=== PATIENT | female | born 1935 | race African-American/Black ===

== ENCOUNTER 2017-12-08 09:32 | Outpatient (CLI) | payer MEDICARE ==
--- NOTE | 2017-12-08 12:08 | BD ---
DEXA BONE DENSITY STUDY: HISTORY: Postmenopausal screening in an 82-year-old female. FINDINGS: Lumbar Spine: BMD (g/cm2) L1 0.842 T-Score: -1.3 L2 0.936 T-Score: -0.8 L3 0.998 T-Score: -0.8 L4 0.982 T-Score: -0.7 L1-L4 0.946 T-Score: -0.9 Femoral Neck: 0.658 T-Score: -1.7 Total Femur: 0.795 T-Score: -1.2 Evidence for osteopenia with increased risk for fracture. FRAX SCORE: Major osteoporotic fracture 6.5% and hip fracture 1.7%. POS: C
== END 2017-12-08 09:33 | disposition home or self-care (01) ==
LOC: BICMAMMO 09:32
PROVIDERS: ATTEND Family Medicine
DX: Z13.820 Encounter for screening for osteoporosis (principal); Z78.0 Asymptomatic menopausal state; M85.859 Other specified disorders of bone density and structure, unspecified thigh
CPT/HCPCS: 77080

== ENCOUNTER 2021-08-03 23:19 | Inpatient (IN) | payer OTHER ==
[2021-08-04 00:54] LABS: Bacteria/HPF 4+ HPF (None Seen); Bilirubin Negative (Negative); Blood, Urine 3+ (Negative); Clarity Turbid (Clear); Glucose, Urine (Dipstick) Normal (Negative); Ketone, Urine Negative (Negative); Leukocyte 75 Leu/uL (Negative); Nitrite Negative (Negative); Protein, Urine (Dipstick) 100 mg/dL (Neg-Trace); Urobilinogen Normal mg/dL (Less than 2); pH, Urine 5.5 (5.0-9.0)
[2021-08-04 00:55] LABS: Urine Culture Reflex No No
[2021-08-04 01:12] LABS: #Basophils 0.1 thou/uL (0.0-0.2); #Eosinphils 0.1 thou/uL (0.0-0.7); #Lymphocytes 2.1 thou/uL (1.20-3.40); #Monocytes 0.9 thou/uL (0.11-0.59); %Eosinophils 0.9 % (0.0-10.0); %Lymphocytes 22.5 % (21.0-51.0); %Monocytes 9.3 % (0.0-10.0); %Neutrophils 66.3 % (42.0-75.0); Mean Corpuscular HGB CONC 33.7 g/dL (32.0-36.0); Mean Corpuscular Hemoglobin 30.4 pg (27.0-31.0); Mean Corpuscular Volume 90.2 fL (78.0-98.0); Mean Platelet Volume 7.2 fL (7.4-10.4); Platelet Count 238 thou/uL (130-400); Red Blood Cell (RBC) Count 3.93 mill/uL (4.20-5.40); White Blood Cell (WBC) Count 9.1 thou/uL (4.8-10.8)
[2021-08-04] MEDS ORDERED: Cefepime 2 GM VIAL ONE (01:40)
[2021-08-04] MEDS ORDERED: Vancomycin 1 GM/200 ML BAG ONE (01:41)
[2021-08-04 01:57] LABS: ALT (SGPT) 135 U/L (8-55); AST (SGOT) 186 U/L (5-34); Albumin 3.1 g/dL (3.4-4.8); Alkaline Phosphatase 89 U/L (40-110); Anion Gap 22 mmol/L (10-20); BUN (Urea Nitrogen) 25 mg/dL (9.8-20.1); Bilirubin, Total 0.4 mg/dL (0.2-1.2); Calc. Creatinine Clearance 0 mL/min (70-130); Carbon Dioxide 12 mmol/L (23-31); Chloride 107 mmol/L (98-107); Globulin 3.5 g/dL (2.4-3.5); Glucose 147 mg/dL (83-110); Magnesium 2.5 mg/dL (1.6-2.6); Potassium 4.8 mmol/L (3.5-5.1); Protein, Total 6.6 g/dL (5.8-8.1); Sodium 136 mmol/L (136-145)
[2021-08-04 02:26] LABS: Troponin I 1.986 ng/mL (< 0.028)
[2021-08-04] MEDS ORDERED: Aspirin 325 MG TAB ONE (03:17)
[2021-08-04 04:43] LABS: CKMB 15.7 ng/mL (0-6.6)
[2021-08-04 04:53] VITALS: BMI 24.5
[2021-08-04 04:58] LABS: Troponin I 2.064 ng/mL (< 0.028)
[2021-08-04] MEDS ORDERED: Lactated Ringer's 1,000 ML IV SCH (05:00)
[2021-08-04] MEDS ORDERED: Ondansetron PF 4 MG/2 ML Vial IVP PRN (05:00)
[2021-08-04] MEDS ORDERED: Ondansetron ODT 4 MG TAB SL PRN (05:00)
[2021-08-04] MEDS ORDERED: Acetaminophen 325 MG TAB PO PRN (05:00)
[2021-08-04] MEDS ORDERED: Communication Order-Pharmacy FS PRN (05:35)
[2021-08-04] MEDS ORDERED: Acetaminophen 500 MG TAB PO PRN (05:35)
[2021-08-04] MEDS ORDERED: Nitroglycerin 0.4 MG TAB (25 Tab Bottle) SL PRN (05:35)
[2021-08-04] MEDS ORDERED: Morphine 2 MG/ML VIAL SLOW IVP PRN (05:35)
[2021-08-04] MEDS ORDERED: Sodium Chloride 0.9% 1,000 ML IV SCH ×2 (05:35→06:32)
[2021-08-04] MEDS: metroNIDAZOLE 500 MG in Premix Bag 1 BAG IVPB SCH ×3 (05:54→21:09)
[2021-08-04 06:30] LABS: #Lymphocytes 0.8 thou/uL (1.20-3.40); #Monocytes 0.8 thou/uL (0.11-0.59); #Neutrophils 8.5 thou/uL (1.40-6.50); %Basophils 0.1 % (0.0-1.0); %Eosinophils 0.4 % (0.0-10.0); %Lymphocytes 8.2 % (21.0-51.0); %Monocytes 7.5 % (0.0-10.0); %Neutrophils 83.8 % (42.0-75.0); Hemoglobin 12.1 g/dL (12.0-16.0); Mean Corpuscular HGB CONC 34.8 g/dL (32.0-36.0); Mean Corpuscular Hemoglobin 29.8 pg (27.0-31.0); Mean Corpuscular Volume 85.6 fL (78.0-98.0); Mean Platelet Volume 7.1 fL (7.4-10.4); Platelet Count 203 thou/uL (130-400); RBC Distribution Width 13.6 % (11.5-14.5); Red Blood Cell (RBC) Count 4.08 mill/uL (4.20-5.40); White Blood Cell (WBC) Count 10.2 thou/uL (4.8-10.8)
[2021-08-04 06:59] LABS: ALT (SGPT) 264 U/L (8-55); AST (SGOT) 473 U/L (5-34); Albumin 3.1 g/dL (3.4-4.8); Alkaline Phosphatase 102 U/L (40-110); Anion Gap 14 mmol/L (10-20); BUN (Urea Nitrogen) 30 mg/dL (9.8-20.1); Bilirubin, Total 0.3 mg/dL (0.2-1.2); Calc. Creatinine Clearance 44 mL/min (70-130); Calcium 8.5 mg/dL (7.8-10.44); Carbon Dioxide 19 mmol/L (23-31); Chloride 107 mmol/L (98-107); Globulin 3.3 g/dL (2.4-3.5); Glucose 111 mg/dL (83-110); Potassium 4.3 mmol/L (3.5-5.1); Protein, Total 6.4 g/dL (5.8-8.1); Sodium 136 mmol/L (136-145)
[2021-08-04] MEDS ORDERED: Polyethylene Glycol 3350 17 GM Packet PO SCH ×2 (09:00)
[2021-08-04] MEDS ORDERED: Senokot 8.6 MG TAB PO SCH (09:00)
[2021-08-04] MEDS ORDERED: Vancomycin HCl 1 GM in Sodium Chloride 0.9% 250 ML 300 ML IVPB SCH (09:00)
[2021-08-04 09:16] LABS: Critical Call Chem Troponin I RESULT DECREASING; Troponin I 1.706 ng/mL (< 0.028)
[2021-08-04 09:32] LABS: Lactic Acid 1.3 mmol/L (0.5-2.2)
[2021-08-04] MEDS: Aspirin 325 mg Enteric Coated Tablet PO SCH (10:03)
[2021-08-04] MEDS: Clopidogrel Bisulfate 75 MG TAB PO SCH (10:03)
[2021-08-04] MEDS: Famotidine 20 MG TAB PO SCH (10:03)
[2021-08-04] MEDS: Donepezil HCl 10 MG TAB PO SCH (10:03)
[2021-08-04] MEDS: DorzolamidE/Timolol 2%/0.5% Ophth Soln 10 ml Bottle EA EYE SCH ×2 (10:04→21:12)
[2021-08-04] MEDS: Lidocaine 5% Patch TD SCH (10:04)
[2021-08-04] MEDS: Latanoprost 0.005% Ophth Soln 2.5 ml Bottle EA EYE SCH (13:50)
[2021-08-04] MEDS: Cefepime 2 GM in Sodium Chloride 0.9% 100 ML IVPB SCH (13:50)
[2021-08-04] MEDS ORDERED: Atorvastatin Calcium 40 MG TAB PO SCH (21:00)
[2021-08-04] MEDS: Transdermal Patch Removal TOP SCH (21:12)
[2021-08-05] MEDS: Cefepime 2 GM in Sodium Chloride 0.9% 100 ML IVPB SCH ×2 (01:03→13:59)
[2021-08-05] MEDS ORDERED: Vancomycin 1 GM in Premix Bag 1 BAG IVPB SCH (02:00)
[2021-08-05 05:33] LABS: #Monocytes 0.7 thou/uL (0.11-0.59); #Neutrophils 4.2 thou/uL (1.40-6.50); %Basophils 0.4 % (0.0-1.0); %Eosinophils 0.2 % (0.0-10.0); %Lymphocytes 16.3 % (21.0-51.0); %Monocytes 12.5 % (0.0-10.0); %Neutrophils 70.6 % (42.0-75.0); Hemoglobin 11.9 g/dL (12.0-16.0); Mean Corpuscular HGB CONC 34.6 g/dL (32.0-36.0); Mean Corpuscular Hemoglobin 29.8 pg (27.0-31.0); Mean Corpuscular Volume 86.2 fL (78.0-98.0); Mean Platelet Volume 7.5 fL (7.4-10.4); Platelet Count 193 thou/uL (130-400); Red Blood Cell (RBC) Count 3.99 mill/uL (4.20-5.40)
[2021-08-05] MEDS: metroNIDAZOLE 500 MG in Premix Bag 1 BAG IVPB SCH ×3 (05:49→20:58)
[2021-08-05 05:52] LABS: ALT (SGPT) 342 U/L (8-55); AST (SGOT) 409 U/L (5-34); Alkaline Phosphatase 115 U/L (40-110); Anion Gap 11 mmol/L (10-20); BUN (Urea Nitrogen) 34 mg/dL (9.8-20.1); Bilirubin, Total 0.4 mg/dL (0.2-1.2); Calc. Creatinine Clearance 54 mL/min (70-130); Calcium 8.5 mg/dL (7.8-10.44); Carbon Dioxide 19 mmol/L (23-31); Cardiac Risk 3.2 (Less than 4.5); Chloride 110 mmol/L (98-107); Cholesterol 123 mg/dl (< 200 Desired); Globulin 3.1 g/dL (2.4-3.5); Glucose 116 mg/dL (83-110); HDL Cholesterol 39 mg/dL (>60 Neg Risk); LDL Cholesterol, Calculated 70 mg/dL; Magnesium 2.2 mg/dL (1.6-2.6); Phosphorus 3.1 mg/dL (2.3-4.7); Potassium 4.3 mmol/L (3.5-5.1); Protein, Total 6.1 g/dL (5.8-8.1); Sodium 136 mmol/L (136-145); Triglycerides 68 mg/dL (Less than 150)
[2021-08-05] MEDS ORDERED: Loratadine 10 MG TAB PO PRN (08:14)
[2021-08-05] MEDS ORDERED: Moisturizing Cream (Eucerin) 113 GM JAR TOP PRN (08:14)
[2021-08-05] MEDS ORDERED: Artificial Tear Sol 15 ML BOT EA EYE PRN (08:14)
[2021-08-05] MEDS ORDERED: Benzonatate 100 MG CAP PO PRN (08:14)
[2021-08-05] MEDS ORDERED: GUAIFENESIN SF SOLN 200 MG/10 ML UDCUP PO PRN (08:14)
[2021-08-05] MEDS ORDERED: Sodium Chloride 0.65% Nasal 44 ML BOT EA NARE PRN (08:14)
[2021-08-05] MEDS ORDERED: hydrALAZINE 20 MG/ML VIAL SLOW IVP PRN (08:14)
[2021-08-05] MEDS ORDERED: HYDROcodone/Acetaminophen 5/325 mg Tablet PO PRN (08:14)
[2021-08-05] MEDS ORDERED: Acetaminophen 500 MG TAB PO PRN (08:15)
[2021-08-05] MEDS: Zinc Sulfate 220 MG CAP PO SCH (09:13)
[2021-08-05] MEDS: Aspirin 325 mg Enteric Coated Tablet PO SCH (09:13)
[2021-08-05] MEDS: Donepezil HCl 10 MG TAB PO SCH (09:13)
[2021-08-05] MEDS: Ascorbic Acid 500 mg Chewable Tablet PO SCH (09:14)
[2021-08-05] MEDS: Clopidogrel Bisulfate 75 MG TAB PO SCH (09:14)
[2021-08-05] MEDS: Polyethylene Glycol 3350 17 GM Packet PO SCH (09:14)
[2021-08-05] MEDS: Cholecalciferol (Vitamin D3) 400 UNITS TAB PO SCH (09:14)
[2021-08-05] MEDS: Famotidine 20 MG TAB PO SCH (09:14)
[2021-08-05] MEDS: Lidocaine 5% Patch TD SCH (09:50)
[2021-08-05] MEDS: DorzolamidE/Timolol 2%/0.5% Ophth Soln 10 ml Bottle EA EYE SCH ×2 (11:31→20:58)
[2021-08-05] MEDS: Ondansetron ODT 4 MG TAB PO PRN ×2 (11:55→23:26)
[2021-08-05] MEDS: Latanoprost 0.005% Ophth Soln 2.5 ml Bottle EA EYE SCH (13:59)
[2021-08-05] MEDS: Transdermal Patch Removal TOP SCH (20:59)
[2021-08-05] MEDS: Loperamide HCl 2 MG CAP PO PRN (23:26)
[2021-08-05] MEDS: Cepastat Lozenges 1 LOZ PO PRN (23:59)
[2021-08-06] MEDS: Cefepime 2 GM in Sodium Chloride 0.9% 100 ML IVPB SCH ×2 (01:45→16:44)
[2021-08-06 05:14] LABS: #Basophils 0.1 thou/uL (0.0-0.2); #Neutrophils 3.6 thou/uL (1.40-6.50); %Basophils 1.3 % (0.0-1.0); %Eosinophils 0.2 % (0.0-10.0); %Lymphocytes 29.9 % (21.0-51.0); %Monocytes 14.6 % (0.0-10.0); %Neutrophils 53.9 % (42.0-75.0); Hemoglobin 11.5 g/dL (12.0-16.0); Mean Corpuscular HGB CONC 34.3 g/dL (32.0-36.0); Mean Corpuscular Hemoglobin 29.3 pg (27.0-31.0); Mean Corpuscular Volume 85.4 fL (78.0-98.0); Mean Platelet Volume 8.1 fL (7.4-10.4); Platelet Count 186 thou/uL (130-400); RBC Distribution Width 13.8 % (11.5-14.5); Red Blood Cell (RBC) Count 3.93 mill/uL (4.20-5.40); White Blood Cell (WBC) Count 6.7 thou/uL (4.8-10.8)
[2021-08-06] MEDS: Loperamide HCl 2 MG CAP PO PRN (05:18)
[2021-08-06] MEDS: Ondansetron ODT 4 MG TAB PO PRN ×2 (05:18→16:44)
[2021-08-06] MEDS: metroNIDAZOLE 500 MG in Premix Bag 1 BAG IVPB SCH ×3 (05:18→21:53)
[2021-08-06 05:36] LABS: ALT (SGPT) 430 U/L (8-55); AST (SGOT) 519 U/L (5-34); Alkaline Phosphatase 135 U/L (40-110); Anion Gap 14 mmol/L (10-20); BUN (Urea Nitrogen) 36 mg/dL (9.8-20.1); Bilirubin, Total 0.5 mg/dL (0.2-1.2); Calc. Creatinine Clearance 54 mL/min (70-130); Calcium 8.4 mg/dL (7.8-10.44); Carbon Dioxide 18 mmol/L (23-31); Chloride 106 mmol/L (98-107); Globulin 3.1 g/dL (2.4-3.5); Glucose 114 mg/dL (83-110); Magnesium 2.3 mg/dL (1.6-2.6); Phosphorus 2.9 mg/dL (2.3-4.7); Potassium 4.5 mmol/L (3.5-5.1); Protein, Total 6.1 g/dL (5.8-8.1); Sodium 133 mmol/L (136-145)
[2021-08-06] MEDS: Aspirin 325 mg Enteric Coated Tablet PO SCH (08:40)
[2021-08-06] MEDS: Zinc Sulfate 220 MG CAP PO SCH (08:40)
[2021-08-06] MEDS: Donepezil HCl 10 MG TAB PO SCH (08:40)
[2021-08-06] MEDS: Cholecalciferol (Vitamin D3) 400 UNITS TAB PO SCH (08:41)
[2021-08-06] MEDS: Ascorbic Acid 500 mg Chewable Tablet PO SCH (08:41)
[2021-08-06] MEDS: Clopidogrel Bisulfate 75 MG TAB PO SCH (08:41)
[2021-08-06] MEDS: Famotidine 20 MG TAB PO SCH (08:41)
[2021-08-06] MEDS: DorzolamidE/Timolol 2%/0.5% Ophth Soln 10 ml Bottle EA EYE SCH ×2 (08:42→21:51)
[2021-08-06] MEDS: Lidocaine 5% Patch TD SCH (08:43)
[2021-08-06] MEDS: Polyethylene Glycol 3350 17 GM Packet PO SCH (08:43)
[2021-08-06] MEDS: Cepastat Lozenges 1 LOZ PO PRN (08:52)
[2021-08-06] MEDS: Latanoprost 0.005% Ophth Soln 2.5 ml Bottle EA EYE SCH (11:53)
[2021-08-06] MEDS: Ondansetron PF 4 MG/2 ML Vial IVP PRN (22:01)
[2021-08-07] MEDS: Metoclopramide HCl 10 MG/2 ML VIAL IVP PRN ×3 (00:04→15:55)
[2021-08-07] MEDS: Transdermal Patch Removal TOP SCH (00:33)
[2021-08-07] MEDS: Cefepime 2 GM in Sodium Chloride 0.9% 100 ML IVPB SCH ×2 (01:59→13:46)
[2021-08-07] MEDS: metroNIDAZOLE 500 MG in Premix Bag 1 BAG IVPB SCH ×2 (05:29→13:42)
[2021-08-07] MEDS: Ondansetron PF 4 MG/2 ML Vial IVP PRN (05:29)
[2021-08-07 05:50] LABS: ALT (SGPT) 667 U/L (8-55); AST (SGOT) 894 U/L (5-34); Alkaline Phosphatase 216 U/L (40-110); Anion Gap 17 mmol/L (10-20); BUN (Urea Nitrogen) 50 mg/dL (9.8-20.1); Calc. Creatinine Clearance 43 mL/min (70-130); Calcium 8.4 mg/dL (7.8-10.44); Carbon Dioxide 15 mmol/L (23-31); Chloride 106 mmol/L (98-107); Globulin 3.1 g/dL (2.4-3.5); Glucose 97 mg/dL (83-110); Potassium 4.9 mmol/L (3.5-5.1); Protein, Total 6.1 g/dL (5.8-8.1); Sodium 133 mmol/L (136-145)
[2021-08-07 06:08] LABS: #Monocytes 1.2 thou/uL (0.11-0.59); #Neutrophils 5.5 thou/uL (1.40-6.50); %Basophils 0.1 % (0.0-1.0); %Eosinophils 0.3 % (0.0-10.0); %Lymphocytes 22.7 % (21.0-51.0); %Monocytes 13.8 % (0.0-10.0); %Neutrophils 63.2 % (42.0-75.0); Mean Corpuscular HGB CONC 34.7 g/dL (32.0-36.0); Mean Corpuscular Hemoglobin 29.4 pg (27.0-31.0); Mean Corpuscular Volume 84.5 fL (78.0-98.0); Mean Platelet Volume 9.1 fL (7.4-10.4); Platelet Count 144 thou/uL (130-400); RBC Distribution Width 13.7 % (11.5-14.5); Red Blood Cell (RBC) Count 4.08 mill/uL (4.20-5.40); White Blood Cell (WBC) Count 8.8 thou/uL (4.8-10.8)
[2021-08-07 08:16] LABS: Lactic Acid 3.9 mmol/L (0.5-2.2)
[2021-08-07] MEDS: Cholecalciferol (Vitamin D3) 400 UNITS TAB PO SCH (08:48)
[2021-08-07] MEDS: Zinc Sulfate 220 MG CAP PO SCH (08:48)
[2021-08-07] MEDS: Ascorbic Acid 500 mg Chewable Tablet PO SCH (08:48)
[2021-08-07] MEDS: Donepezil HCl 10 MG TAB PO SCH (08:49)
[2021-08-07] MEDS: Clopidogrel Bisulfate 75 MG TAB PO SCH (08:49)
[2021-08-07] MEDS: DorzolamidE/Timolol 2%/0.5% Ophth Soln 10 ml Bottle EA EYE SCH (08:50)
[2021-08-07] MEDS: Lidocaine 5% Patch TD SCH (08:50)
[2021-08-07] MEDS: Polyethylene Glycol 3350 17 GM Packet PO SCH (08:51)
[2021-08-07] MEDS ORDERED: Aspirin Chewable 81 MG TAB PO SCH (09:00)
[2021-08-07] MEDS ORDERED: Pantoprazole 40 MG VIAL IVP SCH (09:00)
[2021-08-07] MEDS: Ondansetron ODT 4 MG TAB PO PRN (11:40)
[2021-08-07] MEDS: Latanoprost 0.005% Ophth Soln 2.5 ml Bottle EA EYE SCH (11:40)
[2021-08-07] MEDS ORDERED: Heparin 10,000 UNITS/ 10 ML VIAL SLOW IVP SCH (14:45)
[2021-08-07] MEDS ORDERED: Heparin 25,000 units/D5W 500 ML IVPB SCH (14:45)
[2021-08-07 15:30] LABS: Hemoglobin 11.7 g/dL (12.0-16.0); Platelet Count 125 thou/uL (130-400)
[2021-08-07 16:15] VITALS: BP 126/81; TEMP 97.4
[2021-08-07] MEDS ORDERED: Dextrose 5 % And 0.9 % NaCl 1,000 ML IV SCH (17:00)
[2021-08-07] MEDS ORDERED: EPINEPHrine 1 MG/10 ML Abboject SYRINGE ONE (18:43)
[2021-08-07] MEDS ORDERED: Sodium Bicarb 50 MEQ/50 ML Abboject 8.4% SYRINGE ONE (18:43)
[2021-08-07] MEDS ORDERED: Atropine Sulfate 1 mg/10 ml Syringe ONE (18:43)
[2021-08-07] MEDS ORDERED: Sodium Bicarbonate Tab 325 MG TAB PO SCH (21:00)
== END 2021-08-07 22:45 | disposition expired | DRG 871 ==
LOC: ERS 23:19 → T4-B 08-04 02:38 → ERHOLD 08-04 03:36 → CCU 08-04 04:17 → IMCU/EMU 08-04 16:21 → NEURO 08-04 18:22
PROVIDERS: ADMIT Internal Medicine; ATTEND Internal Medicine
PROC: 3E03329 Introduction of Other Anti-infective into Peripheral Vein, Percutaneous Approach (ICD-10-PCS; principal; 2021-08-04)
PROC: 8E0ZXY6 Isolation (ICD-10-PCS; 2021-08-04)
PROC: 3E033XZ Introduction of Vasopressor into Peripheral Vein, Percutaneous Approach (ICD-10-PCS; 2021-08-07)
PROC: 5A12012 Performance of Cardiac Output, Single, Manual (ICD-10-PCS; 2021-08-07)
DX: A41.9 Sepsis, unspecified organism (principal); U07.1 COVID-19; I26.99 Other pulmonary embolism without acute cor pulmonale; I21.A1 Myocardial infarction type 2; R65.21 Severe sepsis with septic shock; N39.0 Urinary tract infection, site not specified; N17.9 Acute kidney failure, unspecified; I82.433 Acute embolism and thrombosis of popliteal vein, bilateral; I47.1 Supraventricular tachycardia; I08.2 Rheumatic disorders of both aortic and tricuspid valves; I25.10 Atherosclerotic heart disease of native coronary artery without angina pectoris; K76.1 Chronic passive congestion of liver; I73.9 Peripheral vascular disease, unspecified; R79.89 Other specified abnormal findings of blood chemistry; G30.9 Alzheimer's disease, unspecified; F02.80 Dementia in other diseases classified elsewhere, unspecified severity, without behavioral disturbance, psychotic disturbance, mood disturbance, and anxiety; H40.9 Unspecified glaucoma; M19.90 Unspecified osteoarthritis, unspecified site; K59.09 Other constipation; R74.01 Elevation of levels of liver transaminase levels; M81.0 Age-related osteoporosis without current pathological fracture; I11.0 Hypertensive heart disease with heart failure; I50.810 Right heart failure, unspecified; R29.6 Repeated falls; I46.8 Cardiac arrest due to other underlying condition; R00.1 Bradycardia, unspecified; Z91.81 History of falling; Z90.710 Acquired absence of both cervix and uterus; Z79.899 Other long term (current) drug therapy; Z88.8 Allergy status to other drugs, medicaments and biological substances; Z82.49 Family history of ischemic heart disease and other diseases of the circulatory system; Z79.82 Long term (current) use of aspirin
CPT/HCPCS: 36415; 36416; 71045; 76705; 78227; 80053; 80061; 81001; 82550; 82553; 83605; 83735; 83880; 84100; 84145; 84484; 85025; 85730; 87040; 93005; 93306; 93923; 96361; 96365; 96368; 97139; C9113; J0692; J1644; J2405; J2765; J3370; J3490; J7050; Q0162; U0003; U0005